=== PATIENT | female | born 1925 | race Caucasian/White ===

== ENCOUNTER 2017-01-05 18:11 | Inpatient (IN) | payer OTHER ==
[~2017-01-05] VITALS: Ht 149.9 cm; Wt 47.9 kg
[~2017-01-05 18:11] MED LIST: ADULT LOW DOSE81 M1 PO; AMLODIPINE BESY10 MG PO; ASPIR 8181 M1 PO; BENZONATATE100 MG PO; BETAGAN BOTH EYES; CALCIUM 500 MG1 EACH PO; CLARITIN5 MG PO; CYCLOBENZAPRINE10 M1 PO; DELTASONE20 M1 PO; DUONEB 2.5-0.5 M3 ML PEP; FLONASE16 G1 BOTH NARES; FLORASTOR250 MG PO; GUAIFENESI100 MG/5 M PO; HEPARIN SO5000 UNITS SC; HYCODAN SYRUP480 ML PO; K-DUR20 MEQ PO; LASIX20 MG PO; LASIX40 MG PO; LEVAQUIN250 MG PO; LEVOBUNOLOL OP; LEVOFLOXACIN500 MG PO; LEVOFLOXACIN750 MG PO; LOPRESSOR50 MG PO; LUMIGAN 0.50 DROP/2. BOTH EYES; MECLIZINE HCL12.5 M1 PO; METOPROLOL SUCC25 MG PO; MIACALCIN4 ML NS; MUCINEX1200 MG PO; NORVASC10 MG PO; NORVASC5 MG PO; NOVOLOG PE100 UNITS/ SC; OMEPRAZOLE20 MG PO; PERCOCET 5/31 TABLET PO; PRAVACHOL40 MG PO; PRAVASTATIN SOD10 MG PO; PRAVASTATIN SOD40 MG PO; PREDNISONE10 MG PO; PRILOSEC20 MG PO; PROAIR HFA8.5 GM IH; TESSALON200 MG PO; TOPROL XL50 MG PO; TYLENOL REGULA325 MG PO; VITAMIN D31000 UNIT PO; XALATAN2.5 ML BOTH EYES; ZETIA10 MG PO
[2017-01-05 20:41] LABS: HEMATOCRIT 39.5 % (36.0-46.0); MCH 28.6 PG (29.0-34.0); MCHC 32.4 G/DL (30.0-36.0); MCV 88.2 FL (83-99); MEAN PLAT.VOLUME 9.6 uM^3 (9.5-12.4); PLATELET COUNT 337 K/uL (156-360); RBC DIS.WIDTH-CV 13.1 % (11.8-14.6); RBC DIS.WIDTH-SD 42.4 % (39-53); RED BLOOD COUNT 4.48 M/uL (3.80-5.20); WHITE BLOOD COUNT 18.4 K/uL (4.1-10.2)
[2017-01-05 20:53] LABS: CHLORIDE 100 mEq/L (99-109); POTASSIUM 3.8 mEq/L (3.7-5.4); SODIUM 137 mEq/L (136-147)
[2017-01-05 20:54] LABS: GLUCOSE 118 mg/dL (70-99)
[2017-01-05 20:56] LABS: ANION GAP 10 MEQ/L (2-14)
[2017-01-05 20:58] LABS: GFR ESTIMATE (CALCULATED) > 59 mL/min/
[2017-01-05 20:59] LABS: UREA NITROGEN (BUN) 14 mg/dL (9-23)
[2017-01-06] VITALS (7 sets, daily range): BP systolic 159–190; BP diastolic 71–79
[2017-01-06 01:40] LABS: ADD MIUA? YES; BILIRUBIN NEGATIVE; BLOOD NEGATIVE; COLOR YELLOW ((YELLOW)); GLUCOSE (STRIP) NEGATIVE; KETONES 20; LEUKOCYTES TRACE; NITRITE NEGATIVE; PROTEIN (STRIP) 30; SPECIFIC GRAVITY 1.024 (1.000-1.030); UROBILINOGEN 0.2 MG/DL (0.2-1.0)
[2017-01-06 01:57] LABS: BACTERIA RARE /HPF; EPITHELIAL CELLS RARE /HPF; MUCUS TRACE /LPF; RED BLOOD CELLS 0-5 /HPF (0-5); UCUL ADDED? NO; WHITE BLOOD CELLS 15-20 /HPF (0-5)
[2017-01-06] MEDS ORDERED: MIACALCIN4 ML ALT NARES ×2 (11:33→11:46)
[2017-01-06] MEDS ORDERED: BETAGAN BOTH EYES (11:48)
[2017-01-06] MEDS ORDERED: XALATAN2.5 ML BOTH EYES (11:49)
[2017-01-06] MEDS ORDERED: LASIX40 MG PO (11:49)
[2017-01-06] MEDS ORDERED: NORVASC10 MG PO (11:50)
[2017-01-06] MEDS ORDERED: TOPROL XL25 MG PO (11:50)
[2017-01-06] MEDS ORDERED: FLONASE16 G1 BOTH NARES (11:51)
[2017-01-06] MEDS ORDERED: KLOR-CON M2020 MEQ PO (11:51)
[2017-01-06] MEDS ORDERED: PRAVACHOL10 MG PO (11:52)
[2017-01-06] MEDS ORDERED: PRILOSEC20 MG PO (11:52)
[2017-01-06] MEDS ORDERED: ANTIVERT12.5 MG PO (11:53)
[2017-01-06] MEDS ORDERED: PROVENTIL,2.5 MG/3 M IH (11:54)
[2017-01-07 03:42] VITALS: BP 167/74
[2017-01-07 06:14] LABS: MCH 28.4 PG (29.0-34.0); MCHC 32.1 G/DL (30.0-36.0); MCV 88.6 FL (83-99); MEAN PLAT.VOLUME 10.3 uM^3 (9.5-12.4); PLATELET COUNT 340 K/uL (156-360); RBC DIS.WIDTH-CV 13.1 % (11.8-14.6); RBC DIS.WIDTH-SD 42.9 % (39-53); WHITE BLOOD COUNT 18.4 K/uL (4.1-10.2)
[2017-01-07 06:39] LABS: ALKALINE PHOSPHATASE 62 IU/L (3-129); ANION GAP 7 MEQ/L (2-14); CHLORIDE 94 MEQ/L (99-109); GFR ESTIMATE (CALCULATED) > 59 mL/min/; GLUCOSE 119 mg/dL (70-99); POTASSIUM 3.9 MEQ/L (3.7-5.4); SAMPLE HEMOLYSIS CHECK 0; SAMPLE ICTERIC CHECK 0; SAMPLE LIPEMIA CHECK 0; SODIUM 132 MEQ/L (136-147); TOTAL BILIRUBIN 0.7 MG/DL (0.0-1.0); UREA NITROGEN (BUN) 16 mg/dL (9-23)
[2017-01-07 07:31] VITALS: BP 121/84
[2017-01-07 11:41] VITALS: BP 159/74
[2017-01-07 16:12] VITALS: BP 136/88
[2017-01-07] MEDS ORDERED: PRAVACHOL40 MG PO (16:24)
[2017-01-07] MEDS ORDERED: MUCUS RELIEF600 M1 PO (16:26)
[2017-01-07] MEDS ORDERED: ASPIR 8181 M1 PO (16:27)
[2017-01-07] MEDS ORDERED: VITAMIN D31000 UNIT PO (16:29)
[2017-01-07 23:31] VITALS: BP 137/63
[2017-01-08 07:29] VITALS: BP 104/52
[2017-01-08 10:30] LABS: ANION GAP 5 MEQ/L (2-14); CHLORIDE 91 MEQ/L (99-109); GFR ESTIMATE (CALCULATED) > 59 mL/min/; GLUCOSE 156 mg/dL (70-99); POTASSIUM 3.8 MEQ/L (3.7-5.4); SAMPLE HEMOLYSIS CHECK 0; SAMPLE ICTERIC CHECK 0; SAMPLE LIPEMIA CHECK 0; SODIUM 131 MEQ/L (136-147); UREA NITROGEN (BUN) 17 mg/dL (9-23)
[2017-01-08 10:32] LABS: HEMATOCRIT 34.6 % (36.0-46.0); MCH 28.2 PG (29.0-34.0); MCHC 31.5 G/DL (30.0-36.0); MCV 89.4 FL (83-99); MEAN PLAT.VOLUME 10.6 uM^3 (9.5-12.4); PLATELET COUNT 318 K/uL (156-360); RBC DIS.WIDTH-CV 13.2 % (11.8-14.6); RBC DIS.WIDTH-SD 43.5 % (39-53); RED BLOOD COUNT 3.87 M/uL (3.80-5.20)
[2017-01-08 10:41] LABS: WHITE BLOOD COUNT 12.4 K/uL (4.1-10.2)
[2017-01-08 16:39] LABS: INTER. NORMALIZED RATIO 0.9; PROTHROMBIN TIME 9.6 (9.2-11.2); PTT 30.7 (25-32)
[2017-01-08 16:41] VITALS: BP 179/64
[2017-01-09 00:14] VITALS: BP 134/60
[2017-01-09 08:00] VITALS: BP 147/60
[2017-01-09 10:22] LABS: HEMATOCRIT 34.2 % (36.0-46.0); MCH 28.5 PG (29.0-34.0); MCHC 31.6 G/DL (30.0-36.0); MCV 90.2 FL (83-99); MEAN PLAT.VOLUME 10.5 uM^3 (9.5-12.4); PLATELET COUNT 375 K/uL (156-360); RBC DIS.WIDTH-CV 13.3 % (11.8-14.6); RBC DIS.WIDTH-SD 43.6 % (39-53); RED BLOOD COUNT 3.79 M/uL (3.80-5.20); WHITE BLOOD COUNT 15.4 K/uL (4.1-10.2)
[2017-01-09 10:53] LABS: ANION GAP 8 MEQ/L (2-14); CHLORIDE 92 MEQ/L (99-109); GFR ESTIMATE (CALCULATED) > 59 mL/min/; GLUCOSE 121 mg/dL (70-99); POTASSIUM 4.5 MEQ/L (3.7-5.4); SAMPLE HEMOLYSIS CHECK 0; SAMPLE ICTERIC CHECK 0; SAMPLE LIPEMIA CHECK 0; SODIUM 134 MEQ/L (136-147); UREA NITROGEN (BUN) 18 mg/dL (9-23)
[2017-01-09 16:00] VITALS: BP 126/75
[2017-01-10 00:04] VITALS: BP 143/69
[2017-01-10 07:28] VITALS: BP 162/68
[2017-01-10 15:24] VITALS: BP 146/61
[2017-01-10 23:27] VITALS: BP 162/70
[2017-01-11 07:34] VITALS: BP 148/66
[2017-01-11 10:43] LABS: ANION GAP 10 MEQ/L (2-14); CHLORIDE 95 MEQ/L (99-109); GFR ESTIMATE (CALCULATED) > 59 mL/min/; GLUCOSE 113 mg/dL (70-99); POTASSIUM 4.6 MEQ/L (3.7-5.4); SAMPLE HEMOLYSIS CHECK 0; SAMPLE ICTERIC CHECK 0; SAMPLE LIPEMIA CHECK 0; SODIUM 137 MEQ/L (136-147); UREA NITROGEN (BUN) 16 mg/dL (9-23)
[2017-01-11 10:59] LABS: HEMATOCRIT 36.5 % (36.0-46.0); MCH 27.8 PG (29.0-34.0); MCHC 31.2 G/DL (30.0-36.0); MEAN PLAT.VOLUME 9.5 uM^3 (9.5-12.4); RBC DIS.WIDTH-CV 13.2 % (11.8-14.6); RBC DIS.WIDTH-SD 42.9 % (39-53)
[2017-01-11 11:00] LABS: PLATELET COUNT 501 K/uL (156-360); WHITE BLOOD COUNT 7.1 K/uL (4.1-10.2)
[2017-01-11] MEDS ORDERED: TYLENOL REGULA325 MG PO (14:07)
[2017-01-11 15:38] VITALS: BP 161/74
== END 2017-01-11 16:55 | DRG 542 ==
LOC: EME → EDBD 18:11 → EDOF 01-06 01:37 → 5WEST 01-06 02:27 → 3EAST 01-06 10:32 → 5WEST 01-06 10:32 → 3EAST 01-06 17:27
PROVIDERS: Emergency Medicine; Internal Medicine; Physician Assistant
DX: M48.56XA Collapsed vertebra, not elsewhere classified, lumbar region, initial encounter for fracture (principal); G93.40 Encephalopathy, unspecified; I50.32 Chronic diastolic (congestive) heart failure; R64 Cachexia; I65.21 Occlusion and stenosis of right carotid artery; J44.9 Chronic obstructive pulmonary disease, unspecified; I10 Essential (primary) hypertension; M48.06 Spinal stenosis, lumbar region; M81.0 Age-related osteoporosis without current pathological fracture; M54.16 Radiculopathy, lumbar region; Z68.21 Body mass index [BMI] 21.0-21.9, adult; E78.5 Hyperlipidemia, unspecified; K44.9 Diaphragmatic hernia without obstruction or gangrene; M19.90 Unspecified osteoarthritis, unspecified site; H40.9 Unspecified glaucoma; K76.0 Fatty (change of) liver, not elsewhere classified; Z86.711 Personal history of pulmonary embolism
CPT/HCPCS: 70450; 70551; 71010; 71020; 72131; 74230; 80048; 80053; 81003; 85027; 85610; 85730; 92526 GN; 92610 GN; 92611 GN; 94799; 99202; 99281; 99285; J0696; J1170; J1644; J2405; J3010; J7050